=== PATIENT | male | born 1990 | race Hispanic/Latino ===

== ENCOUNTER 2017-06-29 21:42 | Emergency (ER) | payer BC, OTHER ==
[2017-06-29] MEDS ORDERED: Sodium Chloride 0.9% 1,000 ML IV STA (21:57)
--- NOTE | 2017-06-29 22:14 | ED PDOC ---
HPI: Psych/Substance Abuse Time Seen by Provider: 06/29/17 21:45 Chief Complaint (Nursing): Alcohol Ingestion Chief Complaint (Provider): Alcohol ingestion ED Caveat: Intoxicated History Per: EMS History/Exam Limitations: intoxication Modifying Factor(s): Alcohol Additional Complaint(s): Patient is a 27yo male, brought to eR by EMS for evaluation as they thought the patient was "stumbling." Patient was walking home with his friend when EMS noted him to have unsteady gait. Patient has no medical complaints. A full HPI and ROS is limited as patient is intoxicated. Past Medical History Reviewed: Historical Data, Nursing Documentation, Vital Signs Vital Signs: Last Vital Signs Temp 98.3 F 06/29/17 21:44 Pulse 154 H 06/29/17 21:44 Resp 18 06/29/17 21:44 BP 149/78 06/29/17 21:44 Pulse Ox 96 06/29/17 21:44 - Medical History PMH: No Chronic Diseases - Family History Family History: States: No Known Family Hx - Home Medications Home Medications: Ambulatory Orders Medication Instructions Recorded Ibuprofen [Motrin Tab] 800 mg PO Q8 #20 tab 10/19/15 - Allergies Allergies/Adverse Reactions: Allergies Allergy/AdvReac Type Severity Reaction Status Date / Time No Known Allergies Allergy Verified 10/19/15 11:10 Review of Systems Review Of Systems: ROS cannot be obtained secondary to pt's inabilty to answer questions. (patient intoxicated and not answering questions) Physical Exam - Reviewed Nursing Documentation Reviewed: Yes Vital Signs Reviewed: Yes - Physical Exam Appears: Positive for: No Acute Distress Head Exam: Positive for: ATRAUMATIC, NORMAL INSPECTION, NORMOCEPHALIC Skin: Positive for: Normal Color Eye Exam: Positive for: EOMI, PERRL, Other (small superficial abrasion above left eyebrow) Neck: Positive for: Supple Cardiovascular/Chest: Positive for: Regular Rate, Rhythm, Tachycardia Respiratory: Positive for: Normal Breath Sounds. Negative for: Respiratory Distress Neurologic/Psych: Positive for: Alert (alert but not answering questions) - ECG O2 Sat by Pulse Oximetry: 96 (RA) Pulse Ox Interpretation: Normal Medical Decision Making Medical Decision Making: Impression: alcohol abuse, possible fall Plan: -- CT Head -- Labs -- IV Fluids -- EKG Scribe Attestation: Documented by María Hernandez acting as a scribe for Rosi Collado MD. Provider Attestation: All medical record entries made by the Scribe were at my direction and personally dictated by me. I have reviewed the chart and agree that the record accurately reflects my personal performance of the history, physical exam, medical decision making, and the department course for this patient. I have also personally directed, reviewed, and agree with the discharge instructions and disposition. Disposition - Disposition
[2017-06-29 22:33] LABS: BASO # 0.1 K/uL (0.0-0.2); BASO % 0.6 % (0.0-2.0); HEMOGLOBIN 15.4 g/dL (12.0-18.0); LYMPH # 2.3 K/uL (1.0-4.3); LYMPH % 25.9 % (20.0-40.0); MEAN CELL VOLUME 89.2 fl (80.0-94.0); MEAN CORPUSCULAR HEMOGLOBIN 30.2 pg (27.0-31.0); MEAN CORPUSCULAR HGB CONC 33.8 g/dL (33.0-37.0); MEAN PLATELET VOLUME 9.1 fl (7.2-11.7); MONO # 0.3 K/uL (0.0-0.8); MONO % 3.5 % (0.0-10.0); NEUT # 6.2 K/uL (1.8-7.0); RBC 5.11 Mil/uL (4.40-5.90); RED CELL DISTRIBUTION WIDTH 13.3 % (11.5-14.5); WHITE BLOOD COUNT 8.9 K/uL (4.8-10.8)
[2017-06-29 22:53] LABS: ALB/GLOB RATIO 1.5 (1.0-2.1); ALT/SGPT 39 U/L (21-72); AST/SGOT 35 U/L (17-59); BLOOD UREA NITROGEN 16 mg/dl (9-20); CALCIUM 9.6 mg/dL (8.4-10.2); GFR AFRICAN-AMERICAN > 60; GFR NON-AFRICAN AMERICAN > 60
--- NOTE | 2017-06-30 01:36 | ED PDOC ---
- Laboratory Results Result Diagrams: 06/29/17 22:05 06/29/17 22:05 - ECG O2 Sat by Pulse Oximetry: 99 Medical Decision Making Medical Decision Making: Time: 01:00 Patient signed out to me by Dr. Collado pending sobriety and CT. Time: 01:[address] without second dose of ativan 400 Resting comfortably, no acute changes 600 No acute changes, resting comfortably, vitals stable 0700 Patient still too intoxicated for discharge. Will endorse to Dr. Luu pending sobriety and final disposition. Scribe Attestation: Documented by Nagi Hand, acting as a scribe for Martin Joyner MD. Provider Scribe Attestation: All medical record entries made by the Scribe were at my direction and personally dictated by me. I have reviewed the chart and agree that the record accurately reflects my personal performance of the history, physical exam, medical decision making, and the department course for this patient. I have also personally directed, reviewed, and agree with the discharge instructions and disposition. Disposition - Clinical Impression Clinical Impression: Alcohol abuse, Cocaine abuse - POA Present On Arrival: Falls Or Trauma - Disposition Disposition: Transfer of Care Disposition Time: 07:00 Forms: [employer] ([place]) Patient Signed Over To: Kennedy Luu Handoff Comments: pending sobriety and final disposition
--- NOTE | 2017-06-30 02:39 | CT ---
EXAM: CT Head Without Intravenous Contrast CLINICAL HISTORY: 27 years old, male; Injury or trauma; Fall; Work related; Initial encounter; Blunt trauma (contusions or hematomas); Consciousness not specified; Additional info: Head injury TECHNIQUE: Axial computed tomography images of the head/brain without intravenous contrast. All CT scans at this facility use one or more dose reduction techniques, viz.: automated exposure control; ma/kV adjustment per patient size (including targeted exams where dose is matched to indication; i.e. head); or iterative reconstruction technique. Coronal and sagittal reformatted images were created and reviewed. COMPARISON: No relevant prior studies available. FINDINGS: Limitations: Motion artifact - mild to moderate. Brain: No definite intracranial hemorrhage. No mass. No definite edema. Ventricles: No hydrocephalus. Bones/joints: No acute fracture. Soft tissues: Unremarkable. Sinuses: No acute sinusitis. Mastoid air cells: No mastoid effusion. Orbits: Unremarkable as visualized. IMPRESSION: 1. No definite intracranial hemorrhage.
[2017-06-30 04:36] LABS: URINE BILIRUBIN NEGATIVE (NEGATIVE); URINE BLOOD MODERATE (NEGATIVE); URINE CLARITY CLEAR (Clear); URINE COLOR STRAW (YELLOW); URINE GLUCOSE (UA) NEG (Normal); URINE LEUKOCYTE ESTERASE NEG Leu/uL (Negative); URINE NITRATE NEGATIVE (NEGATIVE); URINE PROTEIN NEGATIVE (NEGATIVE); URINE UROBILINOGEN 0.2-1.0 mg/dL (0.2-1.0)
[2017-06-30 04:41] LABS: BARBITURATES, UR NEGATIVE (NEGATIVE); BENZODIAZEPINES, UR NEGATIVE (NEGATIVE); OPIATES, UR NEGATIVE (NEGATIVE); PHENCYCLIDINE, UR NEGATIVE (NEGATIVE)
--- NOTE | 2017-06-30 08:20 | ED PDOC ---
- Laboratory Results Result Diagrams: 06/29/17 22:05 06/29/17 22:05 Interpretation Of Abn Labs: coccaine; etoh - ECG Interpretation Of Abn EKG: repeat EKG with 105 hr, nsr O2 Sat by Pulse Oximetry: 100 Pulse Ox Interpretation: Normal - Progress ED Course And Treament: 819: Stable. Alert. Pending sobriety. Pt. has etoh and coccaine use. Given sedation. 1238: Stable. AAOx3. Pain free. Tolerated PO. Fu with pcp. Disposition - Clinical Impression Clinical Impression: Alcohol abuse, Cocaine abuse - POA Present On Arrival: None - Disposition Referrals: [facility] [Outside] - 07/02/17 Disposition: Routine/Home Disposition Time: 12:39 Condition: STABLE Additional Instructions: Return if not better in 3 days. Instructions: Cocaine Use Disorder, Alcohol Abuse and Alcoholism (DC)
[2017-06-30 12:12] VITALS: PULSE 96; RESP 16
[2017-06-30 12:58] VITALS: BP 116/69; TEMP 98; O2SAT 99
--- NOTE | 2017-07-01 12:12 | CARD ---
APPROVED REPORT EKG Measurement Heart [id number] <Conclusion> Sinus tachycardia Possible Left atrial enlargement Borderline ECG
--- NOTE | 2017-07-01 12:14 | CARD ---
APPROVED REPORT EKG Measurement Heart [id number] ME [id number] <Conclusion> Sinus tachycardia Nonspecific ST abnormality Abnormal ECG
== END 2017-06-30 13:00 | disposition home or self-care (01) ==
LOC: H.ER 21:42
DX: F10.129 Alcohol abuse with intoxication, unspecified (principal); F10.10 Alcohol abuse, uncomplicated; F14.10 Cocaine abuse, uncomplicated; S09.90XA Unspecified injury of head, initial encounter; W01.0XXA Fall on same level from slipping, tripping and stumbling without subsequent striking against object, initial encounter
CPT/HCPCS: 70450; 80053; 81003; 82948; 84484; 85025; 93005; 96372; 99285; G0480; J1630; J2060; J7040